=== PATIENT | male | born 1955 | race Caucasian/White ===

== ENCOUNTER 2018-11-03 12:27 | Emergency (ER) | payer SELFPAY, OTHER | END 2018-11-03 13:09 | disposition left against medical advice (07) | LOC: E/R 12:27 | DX: Z53.21 Procedure and treatment not carried out due to patient leaving prior to being seen by health care provider (principal) ==

== ENCOUNTER 2018-12-26 11:32 | Inpatient (IN) | payer OTHER ==
[2018-12-26 12:10] LABS: ADD MAN DIFF? NO
[2018-12-26 12:13] LABS: WHITE BLOOD COUNT 21.5 10^3/ul (4.8-10.8)
[2018-12-26 12:13] LABS: BASOPHIL # 0.1 10^3/ul (0.0-0.1); BASOPHILS % 0.4 % (0.0-2.0); HEMATOCRIT 38.1 % (42.0-52.0); HEMOGLOBIN 12.8 g/dl (14.0-18.0); LYMPHOCYTES # 1.5 10^3/ul (0.8-2.9); LYMPHOCYTES % 6.8 % (15.0-51.0); MEAN CORPUSCULAR HEMOGLOBIN 28.5 pg (29.0-33.0); MEAN CORPUSCULAR HGB CONC 33.6 g/dl (32.0-37.0); MEAN CORPUSCULAR VOLUME 84.9 fl (82.0-101.0); MEAN PLATELET VOLUME 8.3 fl (7.4-10.4); MONOCYTE # 1.5 10^3/ul (0.3-0.9); MONOCYTES % 6.8 % (0.0-11.0); NEUTROPHIL # 17.6 10^3/ul (1.6-7.5); NEUTROPHILS % 82.1 % (39.0-77.0); PLATELET COUNT 401 10^3/UL (140-415); RED BLOOD COUNT 4.49 10^6/ul (4.70-6.10); RED CELL DISTRIBUTION WIDTH 12.5 % (11.5-14.5)
[2018-12-26] MEDS: PIPER-TAZO 3.375 GM IV (PMX) 100 ML IVPB ×2 (12:22→17:47)
[2018-12-26] MEDS: SODIUM CHLORIDE 0.9% 1L BAG IV* (12:22)
[2018-12-26 12:29] LABS: ALANINE AMINOTRANSFERASE 11 IU/L (13-69); ALBUMIN 3.4 g/dl (3.3-4.9); ALBUMIN/GLOBULIN RATIO 0.82; ALKALINE PHOSPHATASE 85 IU/L (42-121); ANION GAP 9 (5-13); ASPARTATE AMINO TRANSFERASE 19 IU/L (15-46); BILIRUBIN,INDIRECT 0.7 mg/dl (0-1.1); BILIRUBIN,TOTAL 0.7 mg/dl (0.2-1.3); BLOOD UREA NITROGEN 11 mg/dl (7-20); CALCIUM 8.7 mg/dl (8.4-10.2); CARBON DIOXIDE 27 mmol/L (21-31); CHLORIDE 96 mmol/L (97-110); CREATININE 0.62 mg/dl (0.61-1.24); Estimated GFR > 60 mL/min (>60); GLUCOSE 392 mg/dl (70-220); POTASSIUM 3.5 mmol/L (3.5-5.1); SODIUM 132 mmol/L (135-144); TOTAL PROTEIN 7.5 g/dl (6.1-8.1)
[2018-12-26 12:39] LABS: INR 1.23; PROTIME 15.6 Sec (11.9-14.9); PT RATIO 1.2
[2018-12-26 12:40] LABS: PARTIAL THROMBOPLASTIN TIME 31.5 Sec (23.0-35.0)
[2018-12-26 12:41] LABS: TROPONIN-I < 0.012 ng/ml (0.000-0.120)
[2018-12-26] MEDS: VANCOMYCIN 1 GM (PMX) 250 ML IVPB (13:18)
[2018-12-26 13:22] LABS: ERYTHROCYTE SEDIMENTATION RATE 88 mm/Hr (0-20)
[2018-12-26 14:18] LABS: LACTIC ACID 2.1 mmol/L (0.5-2.0)
[2018-12-26] MEDS: INSULIN LISPRO 100 UNIT/ML VIAL SC (14:46)
[2018-12-26] MEDS: ACCU-CHEK XX (14:47)
[2018-12-26] MEDS ORDERED: GLUCOSE GEL 15 GRAM TUBE PO ×2 (16:00)
[2018-12-26] MEDS ORDERED: HYDROCODONE/APAP (5/325) TAB PO (16:00)
[2018-12-26] MEDS ORDERED: NACL 0.9% 3 ML SYG IV (16:00)
[2018-12-26] MEDS ORDERED: ZOLPIDEM 5 MG TAB PO (16:00)
[2018-12-26] MEDS ORDERED: ONDANSETRON 4 MG INJ IV (16:00)
[2018-12-26] MEDS ORDERED: GLUCOSE GEL 15 GRAM TUBE BUCCAL (16:00)
[2018-12-26] MEDS ORDERED: morphine 2 MG INJ IV (16:00)
[2018-12-26] MEDS ORDERED: VANCOMYCIN IV PER PHARMACY XX (16:00)
[2018-12-26] MEDS ORDERED: GLUCAGON 1 MG INJ IM (16:00)
[2018-12-26] MEDS ORDERED: DEXTROSE 50% 50 ML SYRINGE IV ×2 (16:00)
[2018-12-26] MEDS: SOD CHLORIDE 0.9% 1,000 ML IV (16:24)
[2018-12-26] MEDS: ACETAMINOPHEN 325 MG TAB PO (16:24)
[2018-12-26 17:15] LABS: LACTIC ACID 1.9 mmol/L (0.5-2.0)
[2018-12-26] MEDS: INSULIN ASPART [NOVOLOG] 3 ML PEN SC ×3 (17:46→21:00)
[2018-12-26] MEDS: INSULIN GLARGINE [LANTus] (100 UNITS/ML) SYG SC (20:11)
[2018-12-26] MEDS: VANCOMYCIN HCL 1.25 GM in SOD CHLORIDE 0.9% 250 ML IVPB (22:46)
[2018-12-27] MEDS: PIPER-TAZO 3.375 GM IV (PMX) 100 ML IVPB ×4 (00:31→18:28)
[2018-12-27] MEDS: ACCU-CHEK XX (02:00)
[2018-12-27 06:01] LABS: ADD MAN DIFF? NO
[2018-12-27 06:04] LABS: ABNORMAL IP MESSAGE 1; BASOPHIL # 0.1 10^3/ul (0.0-0.1); BASOPHILS % 0.2 % (0.0-2.0); EOSINOPHILS % 0.1 % (0.0-7.0); HEMATOCRIT 34.1 % (42.0-52.0); HEMOGLOBIN 11.2 g/dl (14.0-18.0); LYMPHOCYTES # 2.6 10^3/ul (0.8-2.9); LYMPHOCYTES % 12.6 % (15.0-51.0); MEAN CORPUSCULAR HEMOGLOBIN 28.2 pg (29.0-33.0); MEAN CORPUSCULAR HGB CONC 32.8 g/dl (32.0-37.0); MEAN CORPUSCULAR VOLUME 85.9 fl (82.0-101.0); MEAN PLATELET VOLUME 8.9 fl (7.4-10.4); MONOCYTE # 1.7 10^3/ul (0.3-0.9); MONOCYTES % 8.1 % (0.0-11.0); NEUTROPHIL # 15.7 10^3/ul (1.6-7.5); NEUTROPHILS % 76.4 % (39.0-77.0); PLATELET COUNT 385 10^3/UL (140-415); POSITIVE DIFF @See below; RED BLOOD COUNT 3.97 10^6/ul (4.70-6.10); RED CELL DISTRIBUTION WIDTH 12.8 % (11.5-14.5)
[2018-12-27 06:04] LABS: WHITE BLOOD COUNT 20.5 10^3/ul (4.8-10.8)
[2018-12-27] MEDS: SOD CHLORIDE 0.9% 1,000 ML IV ×3 (06:09→20:37)
[2018-12-27 06:38] LABS: ANION GAP 6 (5-13); BLOOD UREA NITROGEN 8 mg/dl (7-20); CALCIUM 8.1 mg/dl (8.4-10.2); CARBON DIOXIDE 28 mmol/L (21-31); CHLORIDE 103 mmol/L (97-110); Estimated GFR > 60 mL/min (>60); GLUCOSE 126 mg/dl (70-220); MAGNESIUM 1.7 mg/dl (1.7-2.5); PHOSPHORUS 3.2 mg/dl (2.5-4.9); POTASSIUM 3.6 mmol/L (3.5-5.1); SODIUM 137 mmol/L (135-144)
[2018-12-27] MEDS: INSULIN ASPART [NOVOLOG] 3 ML PEN SC ×8 (07:35→20:33)
[2018-12-27 07:47] LABS: HEMOGLOBIN A1C 11.2 % (0-5.9)
[2018-12-27] MEDS: VANCOMYCIN HCL 1.25 GM in SOD CHLORIDE 0.9% 250 ML IVPB (11:37)
[2018-12-27] MEDS: COLLAGENASE 5 GM (UD JAR) TOP (11:37)
[2018-12-27] MEDS: INSULIN GLARGINE [LANTus] (100 UNITS/ML) SYG SC (20:32)
[2018-12-28] MEDS: PIPER-TAZO 3.375 GM IV (PMX) 100 ML IVPB ×4 (00:44→17:54)
[2018-12-28] MEDS: ACCU-CHEK XX (02:00)
[2018-12-28] MEDS: SOD CHLORIDE 0.9% 1,000 ML IV ×3 (06:17→17:56)
[2018-12-28 06:21] LABS: ADD MAN DIFF? NO
[2018-12-28 06:26] LABS: BASOPHIL # 0.1 10^3/ul (0.0-0.1); BASOPHILS % 0.4 % (0.0-2.0); EOSINOPHILS # 0.1 10^3/ul (0.0-0.5); EOSINOPHILS % 0.5 % (0.0-7.0); HEMATOCRIT 33.2 % (42.0-52.0); HEMOGLOBIN 11.1 g/dl (14.0-18.0); LYMPHOCYTES # 2.6 10^3/ul (0.8-2.9); LYMPHOCYTES % 14.1 % (15.0-51.0); MEAN CORPUSCULAR HEMOGLOBIN 28.6 pg (29.0-33.0); MEAN CORPUSCULAR HGB CONC 33.4 g/dl (32.0-37.0); MEAN CORPUSCULAR VOLUME 85.6 fl (82.0-101.0); MEAN PLATELET VOLUME 8.7 fl (7.4-10.4); MONOCYTE # 1.3 10^3/ul (0.3-0.9); MONOCYTES % 7.2 % (0.0-11.0); NEUTROPHIL # 13.8 10^3/ul (1.6-7.5); PLATELET COUNT 413 10^3/UL (140-415); RED BLOOD COUNT 3.88 10^6/ul (4.70-6.10); RED CELL DISTRIBUTION WIDTH 13.1 % (11.5-14.5)
[2018-12-28 06:26] LABS: WHITE BLOOD COUNT 18.4 10^3/ul (4.8-10.8)
[2018-12-28 06:50] LABS: ANION GAP 6 (5-13); BLOOD UREA NITROGEN 8 mg/dl (7-20); CALCIUM 7.8 mg/dl (8.4-10.2); CARBON DIOXIDE 25 mmol/L (21-31); CHLORIDE 104 mmol/L (97-110); CREATININE 0.54 mg/dl (0.61-1.24); Estimated GFR > 60 mL/min (>60); GLUCOSE 164 mg/dl (70-220); POTASSIUM 3.4 mmol/L (3.5-5.1); SODIUM 135 mmol/L (135-144)
[2018-12-28] MEDS: INSULIN ASPART [NOVOLOG] 3 ML PEN SC ×7 (08:37→21:06)
[2018-12-28] MEDS: POTASSIUM CHLORIDE (SR) 20 MEQ TAB PO (12:40)
[2018-12-28] MEDS: INSULIN GLARGINE [LANTus] (100 UNITS/ML) SYG SC (21:05)
[2018-12-28] MEDS: DOCUSATE SODIUM 100 MG CAP PO (21:06)
[2018-12-29] MEDS ORDERED: COLLAGENASE 5 GM (UD JAR) TOP (00:22)
[2018-12-29] MEDS: PIPER-TAZO 3.375 GM IV (PMX) 100 ML IVPB ×5 (00:28→23:56)
[2018-12-29] MEDS: ACCU-CHEK XX (02:30)
[2018-12-29] MEDS: COLLAGENASE 5 GM (UD JAR) TOP ×2 (02:36→08:48)
[2018-12-29] MEDS: SOD CHLORIDE 0.9% 1,000 ML IV ×2 (03:35→05:24)
[2018-12-29 08:37] LABS: ANION GAP 6 (5-13); BLOOD UREA NITROGEN 6 mg/dl (7-20); CALCIUM 7.9 mg/dl (8.4-10.2); CARBON DIOXIDE 29 mmol/L (21-31); CHLORIDE 103 mmol/L (97-110); CREATININE 0.61 mg/dl (0.61-1.24); Estimated GFR > 60 mL/min (>60); GLUCOSE 146 mg/dl (70-220); MAGNESIUM 1.7 mg/dl (1.7-2.5); POTASSIUM 3.3 mmol/L (3.5-5.1); SODIUM 138 mmol/L (135-144)
[2018-12-29] MEDS: INSULIN ASPART [NOVOLOG] 3 ML PEN SC ×7 (08:41→21:00)
[2018-12-29] MEDS: ENOXAPARIN 40 MG/0.4 ML SYG SC (08:47)
[2018-12-29] MEDS: POTASSIUM CHLORIDE (SR) 20 MEQ TAB PO (17:44)
[2018-12-29] MEDS: INSULIN GLARGINE [LANTus] (100 UNITS/ML) SYG SC (22:03)
[2018-12-30] MEDS: COLLAGENASE 5 GM (UD JAR) TOP ×2 (00:01→08:09)
[2018-12-30] MEDS: ACCU-CHEK XX (02:00)
[2018-12-30 05:57] LABS: ADD MAN DIFF? NO
[2018-12-30 05:59] LABS: WHITE BLOOD COUNT 20.9 10^3/ul (4.8-10.8)
[2018-12-30 05:59] LABS: BASOPHIL # 0.1 10^3/ul (0.0-0.1); BASOPHILS % 0.3 % (0.0-2.0); EOSINOPHILS # 0.1 10^3/ul (0.0-0.5); EOSINOPHILS % 0.6 % (0.0-7.0); HEMOGLOBIN 11.3 g/dl (14.0-18.0); LYMPHOCYTES # 2.4 10^3/ul (0.8-2.9); LYMPHOCYTES % 11.6 % (15.0-51.0); MEAN CORPUSCULAR HEMOGLOBIN 28.7 pg (29.0-33.0); MEAN CORPUSCULAR HGB CONC 33.2 g/dl (32.0-37.0); MEAN CORPUSCULAR VOLUME 86.3 fl (82.0-101.0); MEAN PLATELET VOLUME 8.2 fl (7.4-10.4); MONOCYTE # 1.3 10^3/ul (0.3-0.9); NEUTROPHIL # 16.4 10^3/ul (1.6-7.5); NEUTROPHILS % 78.6 % (39.0-77.0); PLATELET COUNT 448 10^3/UL (140-415); RED BLOOD COUNT 3.94 10^6/ul (4.70-6.10); RED CELL DISTRIBUTION WIDTH 12.8 % (11.5-14.5)
[2018-12-30] MEDS: PIPER-TAZO 3.375 GM IV (PMX) 100 ML IVPB (06:00)
[2018-12-30 06:21] LABS: ANION GAP 6 (5-13); BLOOD UREA NITROGEN 7 mg/dl (7-20); CALCIUM 8.3 mg/dl (8.4-10.2); CARBON DIOXIDE 30 mmol/L (21-31); CHLORIDE 101 mmol/L (97-110); CREATININE 0.61 mg/dl (0.61-1.24); Estimated GFR > 60 mL/min (>60); GLUCOSE 161 mg/dl (70-220); MAGNESIUM 1.7 mg/dl (1.7-2.5); POTASSIUM 3.8 mmol/L (3.5-5.1); SODIUM 137 mmol/L (135-144)
[2018-12-30] MEDS: INSULIN ASPART [NOVOLOG] 3 ML PEN SC ×7 (08:03→20:28)
[2018-12-30] MEDS: ENOXAPARIN 40 MG/0.4 ML SYG SC (08:04)
[2018-12-30] MEDS: LIDOCAINE 1% (MPF) 5 ML VIAL SC (12:34)
[2018-12-30] MEDS: CEFTRIAXONE 2 GM/50 ML (PMX) 50 ML IVPB (12:55)
[2018-12-30] MEDS: LIDOCAINE 1% (MDV) 20 ML INJ SC (13:00)
[2018-12-30] MEDS: CIPROFLOXACIN 500 MG TAB PO (17:35)
[2018-12-30] MEDS: INSULIN GLARGINE [LANTus] (100 UNITS/ML) SYG SC (20:29)
[2018-12-31] MEDS: ACCU-CHEK XX (02:00)
[2018-12-31] MEDS: CIPROFLOXACIN 500 MG TAB PO ×2 (05:37→17:32)
[2018-12-31] MEDS: COLLAGENASE 5 GM (UD JAR) TOP (08:00)
[2018-12-31] MEDS: INSULIN ASPART [NOVOLOG] 3 ML PEN SC ×7 (08:03→20:38)
[2018-12-31] MEDS: ENOXAPARIN 40 MG/0.4 ML SYG SC (08:06)
[2018-12-31] MEDS: CEFTRIAXONE 2 GM/50 ML (PMX) 50 ML IVPB (12:04)
[2018-12-31] MEDS: INSULIN GLARGINE [LANTus] (100 UNITS/ML) SYG SC (20:37)
[2019-01-01] MEDS: ACCU-CHEK XX (01:43)
[2019-01-01] MEDS: CIPROFLOXACIN 500 MG TAB PO ×2 (05:53→17:25)
[2019-01-01] MEDS: INSULIN ASPART [NOVOLOG] 3 ML PEN SC ×7 (08:36→20:06)
[2019-01-01] MEDS: COLLAGENASE 5 GM (UD JAR) TOP (08:38)
[2019-01-01] MEDS: ENOXAPARIN 40 MG/0.4 ML SYG SC (08:38)
[2019-01-01] MEDS: CEFTRIAXONE 2 GM/50 ML (PMX) 50 ML IVPB (12:14)
[2019-01-01] MEDS: INSULIN GLARGINE [LANTus] (100 UNITS/ML) SYG SC (20:05)
[2019-01-02] MEDS: ACCU-CHEK XX (02:00)
[2019-01-02] MEDS: CIPROFLOXACIN 500 MG TAB PO ×2 (05:54→17:27)
[2019-01-02] MEDS: ENOXAPARIN 40 MG/0.4 ML SYG SC (08:19)
[2019-01-02] MEDS: INSULIN ASPART [NOVOLOG] 3 ML PEN SC ×7 (08:19→20:14)
[2019-01-02] MEDS: COLLAGENASE 5 GM (UD JAR) TOP (08:20)
[2019-01-02] MEDS: CEFTRIAXONE 2 GM/50 ML (PMX) 50 ML IVPB (12:19)
[2019-01-02] MEDS: INSULIN GLARGINE [LANTus] (100 UNITS/ML) SYG SC (20:15)
[2019-01-03] MEDS: BUPIVACAINE 0.5% (SDV) 30 ML INJ INJ
[2019-01-03] MEDS: POLYMYXIN/BACITRACIN 1L IRRIG IRR
[2019-01-03] MEDS: INSULIN ASPART [NOVOLOG] 3 ML PEN SC ×9 (01:34→20:55)
[2019-01-03] MEDS: CIPROFLOXACIN 500 MG TAB PO ×2 (06:19→17:49)
[2019-01-03] MEDS ORDERED: DESFLURANE 15 MIN (07:00)
[2019-01-03] MEDS ORDERED: LIDOCAINE 2% (SDV) 5 ML INJ (08:16)
[2019-01-03] MEDS ORDERED: PROPOFOL 20 ML ×2 (08:16→09:39)
[2019-01-03] MEDS ORDERED: FENTAnyl 50 MCG/ML VIAL (08:16)
[2019-01-03] MEDS ORDERED: MIDAZOLAM 1 MG/ML 2 ML INJ (08:17)
[2019-01-03] MEDS ORDERED: POLYMYXIN/BACITRACIN 1L IRRIG (08:46)
[2019-01-03] MEDS ORDERED: BUPIVACAINE 0.5% (SDV) 30 ML INJ (08:46)
[2019-01-03] MEDS ORDERED: ONDANSETRON 4 MG INJ (09:13)
[2019-01-03] MEDS ORDERED: METOCLOPRAMIDE 10 MG INJ (09:13)
[2019-01-03] MEDS ORDERED: FAMOTIDINE 20 MG INJ (09:14)
[2019-01-03] MEDS ORDERED: EPHEDrine 25 MG/5 ML SYG (09:49)
[2019-01-03] MEDS ORDERED: MEPERIDINE 25 MG INJ IV (10:00)
[2019-01-03] MEDS ORDERED: ONDANSETRON 4 MG INJ IV (10:00)
[2019-01-03] MEDS ORDERED: OXYCODONE/ACETAMINOPHEN (5/325) TAB PO ×2 (10:00)
[2019-01-03] MEDS ORDERED: HYDROmorphONE 1 MG/5 ML IV SYRINGE IV ×3 (10:00)
[2019-01-03] MEDS: COLLAGENASE 5 GM (UD JAR) TOP (12:29)
[2019-01-03] MEDS: CEFTRIAXONE 2 GM/50 ML (PMX) 50 ML IVPB (12:32)
[2019-01-03] MEDS: SOD CHLORIDE 0.9% 1,000 ML IV (12:32)
[2019-01-03] MEDS: ENOXAPARIN 40 MG/0.4 ML SYG SC (13:47)
[2019-01-03] MEDS: ASCORBIC ACID 250 MG TAB PO (20:54)
[2019-01-03] MEDS: INSULIN GLARGINE [LANTus] (100 UNITS/ML) SYG SC (20:57)
[2019-01-04] MEDS: ACCU-CHEK XX (01:36)
[2019-01-04 05:55] LABS: ADD MAN DIFF? NO
[2019-01-04 06:00] LABS: BASOPHILS % 0.3 % (0.0-2.0); EOSINOPHILS # 0.2 10^3/ul (0.0-0.5); EOSINOPHILS % 1.6 % (0.0-7.0); HEMATOCRIT 35.5 % (42.0-52.0); HEMOGLOBIN 11.5 g/dl (14.0-18.0); LYMPHOCYTES # 2.6 10^3/ul (0.8-2.9); LYMPHOCYTES % 19.5 % (15.0-51.0); MEAN CORPUSCULAR HEMOGLOBIN 28.3 pg (29.0-33.0); MEAN CORPUSCULAR HGB CONC 32.4 g/dl (32.0-37.0); MEAN CORPUSCULAR VOLUME 87.2 fl (82.0-101.0); MONOCYTE # 0.8 10^3/ul (0.3-0.9); MONOCYTES % 5.9 % (0.0-11.0); NEUTROPHIL # 9.4 10^3/ul (1.6-7.5); NEUTROPHILS % 71.5 % (39.0-77.0); PLATELET COUNT 423 10^3/UL (140-415); POSITIVE DIFF @See below; RED BLOOD COUNT 4.07 10^6/ul (4.70-6.10); RED CELL DISTRIBUTION WIDTH 12.9 % (11.5-14.5)
[2019-01-04 06:00] LABS: WHITE BLOOD COUNT 13.2 10^3/ul (4.8-10.8)
[2019-01-04] MEDS: CIPROFLOXACIN 500 MG TAB PO ×2 (06:11→17:34)
[2019-01-04 06:33] LABS: ANION GAP 10 (5-13); BLOOD UREA NITROGEN 11 mg/dl (7-20); CALCIUM 8.4 mg/dl (8.4-10.2); CARBON DIOXIDE 27 mmol/L (21-31); CHLORIDE 104 mmol/L (97-110); CREATININE 0.54 mg/dl (0.61-1.24); Estimated GFR > 60 mL/min (>60); GLUCOSE 138 mg/dl (70-220); MAGNESIUM 1.9 mg/dl (1.7-2.5); POTASSIUM 3.7 mmol/L (3.5-5.1); SODIUM 141 mmol/L (135-144)
[2019-01-04] MEDS: ASCORBIC ACID 250 MG TAB PO ×2 (08:11→22:02)
[2019-01-04] MEDS: DOCUSATE SODIUM 100 MG CAP PO ×3 (08:11→22:01)
[2019-01-04] MEDS: INSULIN ASPART [NOVOLOG] 3 ML PEN SC ×7 (08:12→21:00)
[2019-01-04] MEDS: COLLAGENASE 5 GM (UD JAR) TOP (08:14)
[2019-01-04] MEDS: ENOXAPARIN 40 MG/0.4 ML SYG SC (08:14)
[2019-01-04 12:12] LABS: ANISOCYTOSIS 1+ (0-0); BAND NEUTROPHILS #M 0.7 10^3/ul (0.0-0.6); BAND NEUTROPHILS % (M) 6 % (0-4); BURR CELLS 1+ (0-0); EOSINOPHILS % (M) 1 % (0-7); LYMPHOCYTES #M 3.1 10^3/ul (0.8-2.9); LYMPHOCYTES % (M) 24 % (15-51); MONOCYTE #M 0.7 10^3/ul (0.3-0.9); MONOCYTES % (M) 6 % (0-11); MYELOCYTES #M 0.1 10^3/ul (0.0-0.0); MYELOCYTES % (M) 1 % (0-0); OVALOCYTES 1+ (0-0); PLATELET ESTIMATE NORMAL; PLATELET MORPHOLOGY COMMENT @See below; SEG NEUT #M 8.3 10^3/ul (1.6-7.5); SEGMENTED NEUTROPHILS (M) % 62 % (39-77); SMUDGE%M 17 % (0-0)
[2019-01-04] MEDS: CEFTRIAXONE 2 GM/50 ML (PMX) 50 ML IVPB (12:26)
[2019-01-04] MEDS ORDERED: VANCOMYCIN IV PER PHARMACY XX (14:00)
[2019-01-04] MEDS ORDERED: VANCOMYCIN HCL 2 GM in SOD CHLORIDE 0.9% 500 ML IVPB (15:30)
[2019-01-04] MEDS: VANCOMYCIN HCL 2 GM in SOD CHLORIDE 0.9% 500 ML IVPB (17:58)
[2019-01-04] MEDS: MULTIVITAMINS THERAPEUTIC TAB PO (22:01)
[2019-01-04] MEDS: INSULIN GLARGINE [LANTus] (100 UNITS/ML) SYG SC (22:06)
[2019-01-05] MEDS: ACCU-CHEK XX (02:00)
[2019-01-05] MEDS: VANCOMYCIN HCL 1.5 GM in SOD CHLORIDE 0.9% 250 ML IVPB ×3 (06:09→19:30)
[2019-01-05] MEDS: CIPROFLOXACIN 500 MG TAB PO ×2 (06:15→18:55)
[2019-01-05] MEDS: ASCORBIC ACID 250 MG TAB PO ×2 (08:13→20:11)
[2019-01-05] MEDS: MULTIVITAMINS THERAPEUTIC TAB PO (08:13)
[2019-01-05] MEDS: ENOXAPARIN 40 MG/0.4 ML SYG SC (08:15)
[2019-01-05] MEDS: INSULIN ASPART [NOVOLOG] 3 ML PEN SC ×7 (08:16→20:03)
[2019-01-05] MEDS: COLLAGENASE 5 GM (UD JAR) TOP (08:22)
[2019-01-05] MEDS: CEFTRIAXONE 2 GM/50 ML (PMX) 50 ML IVPB (12:05)
[2019-01-05] MEDS: ALTEPLASE (CATHFLO) 2 MG INJ CATHETER (17:47)
[2019-01-05] MEDS: INSULIN GLARGINE [LANTus] (100 UNITS/ML) SYG SC (20:03)
[2019-01-06] MEDS: ACCU-CHEK XX (02:00)
[2019-01-06] MEDS: VANCOMYCIN TROUGH XX (04:44)
[2019-01-06 06:05] LABS: VANCOMYCIN,TROUGH 17.5 ug/ml (10.0-20.0)
[2019-01-06] MEDS: CIPROFLOXACIN 500 MG TAB PO ×2 (06:19→17:23)
[2019-01-06] MEDS: VANCOMYCIN HCL 1.5 GM in SOD CHLORIDE 0.9% 250 ML IVPB ×2 (06:19→16:06)
[2019-01-06] MEDS: MULTIVITAMINS THERAPEUTIC TAB PO (08:01)
[2019-01-06] MEDS: ASCORBIC ACID 250 MG TAB PO (08:01)
[2019-01-06] MEDS: INSULIN ASPART [NOVOLOG] 3 ML PEN SC ×6 (08:03→17:31)
[2019-01-06] MEDS: ENOXAPARIN 40 MG/0.4 ML SYG SC (08:04)
[2019-01-06] MEDS: COLLAGENASE 5 GM (UD JAR) TOP (08:07)
== END 2019-01-06 19:45 | disposition home health service (06) | DRG 854 ==
LOC: PP2 14:59 → E/R 11:32 → PP2 13:42
PROC: 0Y6P0Z1 Detachment at Right 1st Toe, High, Open Approach (ICD-10-PCS; principal; 2019-01-03 09:20)
PROC: 0KBW0ZZ Excision of Left Foot Muscle, Open Approach (ICD-10-PCS; 2019-01-03 09:20)
PROC: 0H9NXZZ Drainage of Left Foot Skin, External Approach (ICD-10-PCS; 2019-01-03 09:20)
PROC: 02HV33Z Insertion of Infusion Device into Superior Vena Cava, Percutaneous Approach (ICD-10-PCS; 2019-01-03 09:20)
DX: A41.9 Sepsis, unspecified organism (principal); E87.1 Hypo-osmolality and hyponatremia; M86.171 Other acute osteomyelitis, right ankle and foot; E11.621 Type 2 diabetes mellitus with foot ulcer; L97.519 Non-pressure chronic ulcer of other part of right foot with unspecified severity; E11.69 Type 2 diabetes mellitus with other specified complication; E11.65 Type 2 diabetes mellitus with hyperglycemia; B35.1 Tinea unguium; B95.61 Methicillin susceptible Staphylococcus aureus infection as the cause of diseases classified elsewhere; B96.4 Proteus (mirabilis) (morganii) as the cause of diseases classified elsewhere; B95.1 Streptococcus, group B, as the cause of diseases classified elsewhere; E66.9 Obesity, unspecified; Z68.34 Body mass index [BMI] 34.0-34.9, adult; R65.20 Severe sepsis without septic shock; E11.51 Type 2 diabetes mellitus with diabetic peripheral angiopathy without gangrene; I70.209 Unspecified atherosclerosis of native arteries of extremities, unspecified extremity
CPT/HCPCS: 36415; 36569; 71045; 73630; 73718; 80048; 80053; 80202; 82962; 83036; 83605; 83735; 84100; 84484; 85025; 85610; 85651; 85730; 87040-91; 87070; 87075; 88305; 88311; 93005; 96374; 96375; 99285-25

== ENCOUNTER 2019-02-01 09:41 | Inpatient (IN) | payer OTHER ==
[2019-02-01 10:57] LABS: ADD MAN DIFF? NO; BASOPHIL # 0.1 10^3/ul (0.0-0.1); BASOPHILS % 0.5 % (0.0-2.0); EOSINOPHILS # 0.2 10^3/ul (0.0-0.5); EOSINOPHILS % 1.9 % (0.0-7.0); HEMATOCRIT 35.6 % (42.0-52.0); HEMOGLOBIN 11.5 g/dl (14.0-18.0); LYMPHOCYTES # 2.2 10^3/ul (0.8-2.9); LYMPHOCYTES % 19.1 % (15.0-51.0); MEAN CORPUSCULAR HEMOGLOBIN 27.4 pg (29.0-33.0); MEAN CORPUSCULAR HGB CONC 32.3 g/dl (32.0-37.0); MEAN PLATELET VOLUME 8.1 fl (7.4-10.4); MONOCYTE # 0.8 10^3/ul (0.3-0.9); MONOCYTES % 7.2 % (0.0-11.0); NEUTROPHIL # 8.3 10^3/ul (1.6-7.5); NEUTROPHILS % 70.8 % (39.0-77.0); PLATELET COUNT 420 10^3/UL (140-415); RED BLOOD COUNT 4.19 10^6/ul (4.70-6.10); RED CELL DISTRIBUTION WIDTH 13.7 % (11.5-14.5)
[2019-02-01 10:57] LABS: WHITE BLOOD COUNT 11.7 10^3/ul (4.8-10.8)
[2019-02-01] MEDS: SOD CHLORIDE 0.9% 1,000 ML IV ×2 (11:01→15:34)
[2019-02-01] MEDS: CEFEPIME 2GM/50 ML (PMX) 50 ML IVPB (11:02)
[2019-02-01 11:18] LABS: INR 1.09; PROTIME 14.2 Sec (11.9-14.9); PT RATIO 1.1
[2019-02-01 11:19] LABS: PARTIAL THROMBOPLASTIN TIME 31.8 Sec (23.0-35.0)
[2019-02-01] MEDS ORDERED: ACETAMINOPHEN 325 MG TAB PO ×2 (11:30→14:30)
[2019-02-01] MEDS ORDERED: ONDANSETRON 4 MG INJ IV ×2 (11:30→14:30)
[2019-02-01 11:32] LABS: ANION GAP 11 (5-13); BLOOD UREA NITROGEN 11 mg/dl (7-20); CALCIUM 9.5 mg/dl (8.4-10.2); CARBON DIOXIDE 29 mmol/L (21-31); CHLORIDE 101 mmol/L (97-110); CREATININE 0.91 mg/dl (0.61-1.24); Estimated GFR > 60 mL/min (>60); GLUCOSE 285 mg/dl (70-220); POTASSIUM 3.8 mmol/L (3.5-5.1); SODIUM 141 mmol/L (135-144)
[2019-02-01] MEDS: VANCOMYCIN 1 GM (PMX) 250 ML IVPB (11:48)
[2019-02-01 12:30] LABS: ERYTHROCYTE SEDIMENTATION RATE 68 mm/Hr (0-20)
[2019-02-01 13:43] LABS: LACTIC ACID 2.4 mmol/L (0.5-2.0)
[2019-02-01 13:55] LABS: C-REACTIVE PROTEIN 3.7 mg/dl (0.0-0.9)
[2019-02-01] MEDS ORDERED: NACL 0.9% 3 ML SYG IV (14:30)
[2019-02-01] MEDS ORDERED: VANCOMYCIN IV PER PHARMACY XX (14:30)
[2019-02-01] MEDS ORDERED: HYDROCODONE/APAP (5/325) TAB PO (14:30)
[2019-02-01] MEDS ORDERED: DEXTROSE 50% 50 ML SYRINGE IV ×2 (15:00)
[2019-02-01] MEDS ORDERED: GLUCOSE GEL 15 GRAM TUBE PO ×2 (15:00)
[2019-02-01] MEDS ORDERED: GLUCOSE GEL 15 GRAM TUBE BUCCAL (15:00)
[2019-02-01] MEDS ORDERED: GLUCAGON 1 MG INJ IM (15:00)
[2019-02-01 15:18] LABS: LACTIC ACID 2.2 mmol/L (0.5-2.0)
[2019-02-01] MEDS: CIPROFLOXACIN 400MG/D5W 200 ML IVPB (16:45)
[2019-02-01] MEDS: INSULIN ASPART [NOVOLOG] 3 ML PEN SC ×3 (17:18→20:13)
[2019-02-01] MEDS: VANCOMYCIN 1 GM 250 ML IVPB (17:18)
[2019-02-01] MEDS: ASCORBIC ACID 250 MG TAB PO (20:14)
[2019-02-01] MEDS: INSULIN GLARGINE [LANTus] (100 UNITS/ML) SYG SC (20:16)
[2019-02-02 01:10] LABS: LACTIC ACID 1.5 mmol/L (0.5-2.0)
[2019-02-02] MEDS: ALTEPLASE (CATHFLO) 2 MG INJ CATHETER (05:22)
[2019-02-02] MEDS: VANCOMYCIN 1 GM 250 ML IVPB ×2 (06:07→17:46)
[2019-02-02] MEDS: INSULIN ASPART [NOVOLOG] 3 ML PEN SC ×7 (08:00→21:26)
[2019-02-02] MEDS: ENOXAPARIN 40 MG/0.4 ML SYG SC (08:22)
[2019-02-02] MEDS: ASCORBIC ACID 250 MG TAB PO ×2 (08:23→21:25)
[2019-02-02] MEDS: MULTIVITAMINS THERAPEUTIC TAB PO (08:23)
[2019-02-02] MEDS: CIPROFLOXACIN 400MG/D5W 200 ML IVPB ×2 (08:23→21:26)
[2019-02-02 08:51] LABS: ADD MAN DIFF? NO
[2019-02-02 08:55] LABS: WHITE BLOOD COUNT 9.4 10^3/ul (4.8-10.8)
[2019-02-02 08:55] LABS: BASOPHILS % 0.4 % (0.0-2.0); EOSINOPHILS # 0.4 10^3/ul (0.0-0.5); EOSINOPHILS % 3.8 % (0.0-7.0); HEMATOCRIT 36.9 % (42.0-52.0); HEMOGLOBIN 11.9 g/dl (14.0-18.0); LYMPHOCYTES # 1.8 10^3/ul (0.8-2.9); LYMPHOCYTES % 19.3 % (15.0-51.0); MEAN CORPUSCULAR HEMOGLOBIN 27.2 pg (29.0-33.0); MEAN CORPUSCULAR HGB CONC 32.2 g/dl (32.0-37.0); MEAN CORPUSCULAR VOLUME 84.2 fl (82.0-101.0); MEAN PLATELET VOLUME 8.1 fl (7.4-10.4); MONOCYTE # 0.6 10^3/ul (0.3-0.9); MONOCYTES % 6.1 % (0.0-11.0); NEUTROPHIL # 6.5 10^3/ul (1.6-7.5); PLATELET COUNT 433 10^3/UL (140-415); RED BLOOD COUNT 4.38 10^6/ul (4.70-6.10); RED CELL DISTRIBUTION WIDTH 13.7 % (11.5-14.5)
[2019-02-02 09:14] LABS: PHOSPHORUS 3.8 mg/dl (2.5-4.9)
[2019-02-02 09:14] LABS: CHOL/HDL RATIO 4.6 RATIO; CHOLESTEROL 130 mg/dl (100-200); HDL CHOLESTEROL 28 mg/dl (30-78); INR 1.08; LDL CHOLESTEROL,CALCULATED 74 mg/dl; MAGNESIUM 1.8 mg/dl (1.7-2.5); PROTIME 14.1 Sec (11.9-14.9); PT RATIO 1.1; TRIGLYCERIDES 141 mg/dl (0-149)
[2019-02-02 09:15] LABS: PARTIAL THROMBOPLASTIN TIME 32.4 Sec (23.0-35.0)
[2019-02-02 09:17] LABS: ALANINE AMINOTRANSFERASE 8 IU/L (13-69); ALBUMIN 3.9 g/dl (3.3-4.9); ALBUMIN/GLOBULIN RATIO 0.88; ALKALINE PHOSPHATASE 68 IU/L (42-121); ANION GAP 10 (5-13); ASPARTATE AMINO TRANSFERASE 22 IU/L (15-46); BILIRUBIN,INDIRECT 0.4 mg/dl (0-1.1); BILIRUBIN,TOTAL 0.4 mg/dl (0.2-1.3); BLOOD UREA NITROGEN 8 mg/dl (7-20); CALCIUM 9.4 mg/dl (8.4-10.2); CARBON DIOXIDE 28 mmol/L (21-31); CHLORIDE 108 mmol/L (97-110); CREATININE 0.87 mg/dl (0.61-1.24); Estimated GFR > 60 mL/min (>60); GLUCOSE 93 mg/dl (70-220); SODIUM 146 mmol/L (135-144); TOTAL PROTEIN 8.3 g/dl (6.1-8.1)
[2019-02-02] MEDS: INSULIN GLARGINE [LANTus] (100 UNITS/ML) SYG SC (21:29)
[2019-02-03] MEDS: COLLAGENASE 5 GM (UD JAR) TOP ×2 (01:16→08:41)
[2019-02-03 06:02] LABS: ADD MAN DIFF? NO
[2019-02-03 06:06] LABS: WHITE BLOOD COUNT 8.8 10^3/ul (4.8-10.8)
[2019-02-03 06:06] LABS: BASOPHIL # 0.1 10^3/ul (0.0-0.1); BASOPHILS % 0.6 % (0.0-2.0); EOSINOPHILS # 0.4 10^3/ul (0.0-0.5); EOSINOPHILS % 4.5 % (0.0-7.0); HEMATOCRIT 32.5 % (42.0-52.0); HEMOGLOBIN 10.6 g/dl (14.0-18.0); LYMPHOCYTES # 2.4 10^3/ul (0.8-2.9); LYMPHOCYTES % 26.8 % (15.0-51.0); MEAN CORPUSCULAR HGB CONC 32.6 g/dl (32.0-37.0); MEAN CORPUSCULAR VOLUME 82.9 fl (82.0-101.0); MEAN PLATELET VOLUME 8.2 fl (7.4-10.4); MONOCYTE # 0.7 10^3/ul (0.3-0.9); MONOCYTES % 7.4 % (0.0-11.0); NEUTROPHIL # 5.3 10^3/ul (1.6-7.5); NEUTROPHILS % 60.4 % (39.0-77.0); PLATELET COUNT 371 10^3/UL (140-415); RED BLOOD COUNT 3.92 10^6/ul (4.70-6.10); RED CELL DISTRIBUTION WIDTH 13.5 % (11.5-14.5)
[2019-02-03 06:33] LABS: ANION GAP 9 (5-13); BLOOD UREA NITROGEN 11 mg/dl (7-20); CALCIUM 8.9 mg/dl (8.4-10.2); CARBON DIOXIDE 28 mmol/L (21-31); CHLORIDE 104 mmol/L (97-110); CREATININE 0.86 mg/dl (0.61-1.24); Estimated GFR > 60 mL/min (>60); GLUCOSE 94 mg/dl (70-220); POTASSIUM 3.5 mmol/L (3.5-5.1); SODIUM 141 mmol/L (135-144)
[2019-02-03 07:35] LABS: MAGNESIUM 1.8 mg/dl (1.7-2.5)
[2019-02-03] MEDS: INSULIN ASPART [NOVOLOG] 3 ML PEN SC ×7 (07:35→21:00)
[2019-02-03] MEDS: VANCOMYCIN 1 GM 250 ML IVPB (08:04)
[2019-02-03] MEDS: ASCORBIC ACID 250 MG TAB PO ×2 (08:41→22:42)
[2019-02-03] MEDS: MULTIVITAMINS THERAPEUTIC TAB PO (08:41)
[2019-02-03] MEDS: ENOXAPARIN 40 MG/0.4 ML SYG SC (08:44)
[2019-02-03] MEDS: CIPROFLOXACIN 400MG/D5W 200 ML IVPB (10:10)
[2019-02-03] MEDS: VANCOMYCIN HCL 1.25 GM in SOD CHLORIDE 0.9% 250 ML IVPB (22:34)
[2019-02-03] MEDS: INSULIN GLARGINE [LANTus] (100 UNITS/ML) SYG SC (22:42)
[2019-02-04] MEDS: CIPROFLOXACIN 400MG/D5W 200 ML IVPB ×4 (00:29→20:15)
[2019-02-04] MEDS: INSULIN ASPART [NOVOLOG] 3 ML PEN SC ×7 (07:35→20:14)
[2019-02-04] MEDS: VANCOMYCIN HCL 1.25 GM in SOD CHLORIDE 0.9% 250 ML IVPB ×2 (08:25→21:43)
[2019-02-04] MEDS: ASCORBIC ACID 250 MG TAB PO ×2 (09:21→20:15)
[2019-02-04] MEDS: COLLAGENASE 5 GM (UD JAR) TOP (09:21)
[2019-02-04] MEDS: MULTIVITAMINS THERAPEUTIC TAB PO (09:21)
[2019-02-04] MEDS: ENOXAPARIN 40 MG/0.4 ML SYG SC (09:22)
[2019-02-04] MEDS: INSULIN GLARGINE [LANTus] (100 UNITS/ML) SYG SC (20:13)
[2019-02-05] MEDS: INSULIN ASPART [NOVOLOG] 3 ML PEN SC ×7 (08:00→20:28)
[2019-02-05] MEDS: MULTIVITAMINS THERAPEUTIC TAB PO (08:01)
[2019-02-05] MEDS: ASCORBIC ACID 250 MG TAB PO ×2 (08:01→20:29)
[2019-02-05 08:03] LABS: VANCOMYCIN,TROUGH 17.4 ug/ml (10.0-20.0)
[2019-02-05] MEDS: ENOXAPARIN 40 MG/0.4 ML SYG SC (08:09)
[2019-02-05] MEDS: CIPROFLOXACIN 400MG/D5W 200 ML IVPB ×2 (08:13→20:32)
[2019-02-05] MEDS: COLLAGENASE 5 GM (UD JAR) TOP (09:00)
[2019-02-05] MEDS: VANCOMYCIN HCL 1.25 GM in SOD CHLORIDE 0.9% 250 ML IVPB (10:05)
[2019-02-05] MEDS: INSULIN GLARGINE [LANTus] (100 UNITS/ML) SYG SC (20:00)
[2019-02-05] MEDS: VANCOMYCIN 1 GM 250 ML IVPB (22:18)
[2019-02-06] MEDS: VANCOMYCIN 1 GM 250 ML IVPB ×2 (08:24→20:32)
[2019-02-06] MEDS: MULTIVITAMINS THERAPEUTIC TAB PO (08:25)
[2019-02-06] MEDS: ASCORBIC ACID 250 MG TAB PO ×2 (08:25→20:32)
[2019-02-06] MEDS: ENOXAPARIN 40 MG/0.4 ML SYG SC (08:28)
[2019-02-06] MEDS: INSULIN ASPART [NOVOLOG] 3 ML PEN SC ×7 (08:29→20:32)
[2019-02-06] MEDS: CIPROFLOXACIN 400MG/D5W 200 ML IVPB ×2 (11:20→23:09)
[2019-02-06] MEDS: COLLAGENASE 5 GM (UD JAR) TOP (16:18)
[2019-02-06] MEDS: INSULIN GLARGINE [LANTus] (100 UNITS/ML) SYG SC (20:39)
[2019-02-07] MEDS: ALTEPLASE (CATHFLO) 2 MG INJ CATHETER (03:00)
[2019-02-07 05:41] LABS: ADD MAN DIFF? NO
[2019-02-07 05:52] LABS: BASOPHILS % 0.4 % (0.0-2.0); EOSINOPHILS # 0.5 10^3/ul (0.0-0.5); EOSINOPHILS % 5.2 % (0.0-7.0); HEMATOCRIT 32.4 % (42.0-52.0); HEMOGLOBIN 10.5 g/dl (14.0-18.0); LYMPHOCYTES # 2.3 10^3/ul (0.8-2.9); LYMPHOCYTES % 24.5 % (15.0-51.0); MEAN CORPUSCULAR HEMOGLOBIN 27.5 pg (29.0-33.0); MEAN CORPUSCULAR HGB CONC 32.4 g/dl (32.0-37.0); MEAN CORPUSCULAR VOLUME 84.8 fl (82.0-101.0); MEAN PLATELET VOLUME 8.3 fl (7.4-10.4); MONOCYTE # 0.7 10^3/ul (0.3-0.9); MONOCYTES % 7.3 % (0.0-11.0); NEUTROPHIL # 5.8 10^3/ul (1.6-7.5); NEUTROPHILS % 62.3 % (39.0-77.0); PLATELET COUNT 361 10^3/UL (140-415); RED BLOOD COUNT 3.82 10^6/ul (4.70-6.10); RED CELL DISTRIBUTION WIDTH 13.6 % (11.5-14.5)
[2019-02-07 05:52] LABS: WHITE BLOOD COUNT 9.3 10^3/ul (4.8-10.8)
[2019-02-07 06:16] LABS: ANION GAP 8 (5-13); BLOOD UREA NITROGEN 14 mg/dl (7-20); CALCIUM 8.9 mg/dl (8.4-10.2); CARBON DIOXIDE 28 mmol/L (21-31); CHLORIDE 107 mmol/L (97-110); CREATININE 0.81 mg/dl (0.61-1.24); Estimated GFR > 60 mL/min (>60); GLUCOSE 140 mg/dl (70-220); POTASSIUM 3.5 mmol/L (3.5-5.1); SODIUM 143 mmol/L (135-144)
[2019-02-07] MEDS: VANCOMYCIN 1 GM 250 ML IVPB ×2 (07:41→20:10)
[2019-02-07] MEDS: INSULIN ASPART [NOVOLOG] 3 ML PEN SC ×7 (08:00→21:00)
[2019-02-07] MEDS: ENOXAPARIN 40 MG/0.4 ML SYG SC (08:25)
[2019-02-07] MEDS: ASCORBIC ACID 250 MG TAB PO ×2 (08:25→22:46)
[2019-02-07] MEDS: MULTIVITAMINS THERAPEUTIC TAB PO (08:25)
[2019-02-07] MEDS: COLLAGENASE 5 GM (UD JAR) TOP (08:26)
[2019-02-07] MEDS: CIPROFLOXACIN 400MG/D5W 200 ML IVPB ×2 (09:44→22:43)
[2019-02-07] MEDS: D5W-0.45 NACL + KCL 10 MEQ 1,000 ML IV (17:44)
[2019-02-07 19:32] LABS: VANCOMYCIN,TROUGH 14.2 ug/ml (10.0-20.0)
[2019-02-07] MEDS ORDERED: FENTAnyl 50 MCG/ML VIAL (20:35)
[2019-02-07] MEDS ORDERED: MIDAZOLAM 1 MG/ML 2 ML INJ (20:36)
[2019-02-07] MEDS ORDERED: METOCLOPRAMIDE 10 MG INJ (20:52)
[2019-02-07] MEDS: LIDOCAINE 2% (MDV) 20 ML INJ INJ (21:00)
[2019-02-07] MEDS: BUPIVACAINE 0.5% 30 ML VIAL INJ (21:01)
[2019-02-07] MEDS ORDERED: PROPOFOL 20 ML (21:01)
[2019-02-07] MEDS: POLYMYXIN/BACITRACIN 1L IRRIG IRR (21:02)
[2019-02-07] MEDS ORDERED: LIDOCAINE 2% (MDV) 20 ML INJ (21:13)
[2019-02-07] MEDS ORDERED: ONDANSETRON 4 MG INJ IV (21:30)
[2019-02-07] MEDS ORDERED: LABETALOL HCL 20MG INJ IV (21:30)
[2019-02-07] MEDS ORDERED: MEPERIDINE 25 MG INJ IV (21:30)
[2019-02-07] MEDS ORDERED: HYDROmorphONE 1 MG/5 ML IV SYRINGE IV ×3 (21:30)
[2019-02-07] MEDS ORDERED: FENTAnyl 50 MCG/ML VIAL IV (21:30)
[2019-02-07] MEDS ORDERED: hydrALAzine 20 MG INJ IV (21:30)
[2019-02-07] MEDS ORDERED: PROCHLORPERAZINE 10 MG INJ IV (21:30)
[2019-02-07] MEDS ORDERED: DIPHENHYDRAMINE 50 MG INJ IV (21:30)
[2019-02-07] MEDS: INSULIN GLARGINE [LANTus] (100 UNITS/ML) SYG SC (22:44)
[2019-02-08] MEDS: D5W-0.45 NACL + KCL 10 MEQ 1,000 ML IV (05:00)
[2019-02-08] MEDS: VANCOMYCIN 1 GM 250 ML IVPB ×2 (07:36→20:01)
[2019-02-08] MEDS: INSULIN ASPART [NOVOLOG] 3 ML PEN SC ×7 (07:46→20:03)
[2019-02-08] MEDS: ASCORBIC ACID 250 MG TAB PO ×2 (08:08→21:23)
[2019-02-08] MEDS: MULTIVITAMINS THERAPEUTIC TAB PO (08:08)
[2019-02-08] MEDS: ENOXAPARIN 40 MG/0.4 ML SYG SC (08:09)
[2019-02-08] MEDS: COLLAGENASE 5 GM (UD JAR) TOP (08:09)
[2019-02-08] MEDS: CIPROFLOXACIN 400MG/D5W 200 ML IVPB ×2 (09:48→22:14)
[2019-02-08] MEDS: INSULIN GLARGINE [LANTus] (100 UNITS/ML) SYG SC (21:24)
[2019-02-09] MEDS: INSULIN ASPART [NOVOLOG] 3 ML PEN SC ×4 (08:00→12:30)
[2019-02-09] MEDS: VANCOMYCIN 1 GM 250 ML IVPB (08:09)
[2019-02-09] MEDS: ASCORBIC ACID 250 MG TAB PO (08:15)
[2019-02-09] MEDS: MULTIVITAMINS THERAPEUTIC TAB PO (08:15)
[2019-02-09] MEDS: ENOXAPARIN 40 MG/0.4 ML SYG SC ×2 (08:17→09:00)
[2019-02-09] MEDS: COLLAGENASE 5 GM (UD JAR) TOP (08:19)
[2019-02-09] MEDS: CIPROFLOXACIN 400MG/D5W 200 ML IVPB (10:52)
[2019-02-09] MEDS ORDERED: CIPROFLOXACIN 500 MG TAB PO (18:00)
== END 2019-02-09 18:25 | disposition home health service (06) | DRG 504 ==
LOC: PP2 02-02 11:20 → E/R 09:41 → 5EC 11:27
PROVIDERS: Internal Medicine
PROC: 0QBN0ZZ Excision of Right Metatarsal, Open Approach (ICD-10-PCS; principal; 2019-02-07 18:30)
PROC: 0QBQ0ZZ Excision of Right Toe Phalanx, Open Approach (ICD-10-PCS; 2019-02-07 18:30)
DX: T87.43 Infection of amputation stump, right lower extremity (principal); L02.611 Cutaneous abscess of right foot; M86.171 Other acute osteomyelitis, right ankle and foot; L03.115 Cellulitis of right lower limb; E13.51 Other specified diabetes mellitus with diabetic peripheral angiopathy without gangrene; D63.8 Anemia in other chronic diseases classified elsewhere; B35.1 Tinea unguium; F41.9 Anxiety disorder, unspecified; B95.8 Unspecified staphylococcus as the cause of diseases classified elsewhere; Y84.8 Other medical procedures as the cause of abnormal reaction of the patient, or of later complication, without mention of misadventure at the time of the procedure; E66.9 Obesity, unspecified; Z68.32 Body mass index [BMI] 32.0-32.9, adult; Y92.019 Unspecified place in single-family (private) house as the place of occurrence of the external cause; Z79.4 Long term (current) use of insulin
CPT/HCPCS: 36415; 73630; 73718; 80048; 80053; 80061; 80202; 82306; 82652; 82962; 83036; 83605; 83735; 84100; 85025; 85610; 85651; 85730; 86140; 87040-91; 87070; 87075; 87081; 87102; 87116; 88305; 88311; 93005; 96365; 99285-25